=== PATIENT | female | born 1945 | race Caucasian/White ===

== ENCOUNTER 2022-06-26 13:30 | Emergency (ER) | payer OTHER, MEDICARE, SELFPAY ==
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
[2022-06-26 14:02] VITALS: BP 130/86; BP 146/85; PULSE 63; PULSE 68; RESP 16; TEMP 36.8; O2SAT 96; BMI 28.9
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
[2022-06-26] MEDS: Acetaminophen 325 MG TABLET 650 MG PO (16:27)
[2022-06-26 16:30] VITALS: BP 162/79; PULSE 79; RESP 18
[2022-06-26] MEDS: Insulin Glargine,Hum.rec.anlog 100 UNIT/ML 10 ML VIAL 8 UNIT SUBCUT (18:45)
[2022-06-26] MEDS: traMADoL HCL 50 MG TABLET 100 MG PO (19:21)
== END 2022-06-26 19:30 | disposition home or self-care (01) ==
PROVIDERS: Emergency Provider Emergency Medicine; PCP Family Medicine
DX: S22.42XA Multiple fractures of ribs, left side, initial encounter for closed fracture (principal); S80.11XA Contusion of right lower leg, initial encounter; M54.2 Cervicalgia; R51.9 Headache, unspecified; M54.6 Pain in thoracic spine; V43.62XA Car passenger injured in collision with other type car in traffic accident, initial encounter; Y93.9 Activity, unspecified; Y92.410 Unspecified street and highway as the place of occurrence of the external cause; Y99.9 Unspecified external cause status; Z79.899 Other long term (current) drug therapy
CPT/HCPCS: 70450; 71250; 72125; 99284

== ENCOUNTER 2022-06-30 13:00 | Emergency (ER) | payer OTHER, SELFPAY ==
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
--- NOTE | ~2022-06-30 | XR_ITS ---
EXAMINATION: XR KNEE, RIGHT CLINICAL INFORMATION: Pain COMPARISON: None TECHNIQUE: AP and lateral views of the right knee. FINDINGS: Bones are osteopenic. There is moderate to severe medial compartment joint space narrowing with cortical remodeling, articular sclerosis, and marginal osteophytes. There is more mild lateral and patellofemoral compartment joint space narrowing with prominent marginal osteophytes. Moderate-sized joint effusion. No fractures. Slight varus angulation at the right knee. Calcific atherosclerosis in the popliteal artery. Multiple small dystrophic calcifications around the knee. XR/XR knee RT 2V IMPRESSION: Moderate to severe medial compartment osteoarthritis. More mild patellofemoral and lateral compartment osteoarthritis. Moderate-sized joint effusion.
[2022-06-30 13:13] VITALS: BP 99/58; PULSE 77; O2SAT 95
[2022-06-30 16:01] VITALS: BP 127/71; PULSE 76; RESP 18; TEMP 36.8; O2SAT 98; BMI 28.9
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
[2022-06-30] MEDS: Acetaminophen 325 MG TABLET 975 MG PO (18:26)
== END 2022-06-30 18:40 | disposition home or self-care (01) ==
PROVIDERS: Emergency Provider Emergency Medicine; PCP Family Medicine
DX: S83.91XA Sprain of unspecified site of right knee, initial encounter (principal); S80.01XA Contusion of right knee, initial encounter; V49.9XXA Car occupant (driver) (passenger) injured in unspecified traffic accident, initial encounter; M25.561 Pain in right knee; Y93.9 Activity, unspecified; Y92.410 Unspecified street and highway as the place of occurrence of the external cause; Y99.9 Unspecified external cause status
CPT/HCPCS: 73560; 93971; 99283; 99284

== ENCOUNTER 2022-12-24 13:34 | Emergency (ER) | payer OTHER, MEDICARE, SELFPAY ==
--- NOTE | ~2022-12-24 | XR_ITS ---
EXAMINATION: Left shoulder and chest x-ray. CLINICAL INDICATION: Fall. Pain. COMPARISON: None. FINDINGS: LEFT SHOULDER: There is vertical minimally displaced fracture involving the greater tuberosity. No additional fracture seen. No dislocation. There is loss of left AC joint with periarticular spurring. The soft tissues are normal. There is an old healed fracture left lateral sixth rib. CHEST: The lungs are well-expanded with right base atelectasis and elevated right hemidiaphragm. The heart size and progress clarities normal. No gross bony abnormality seen. XR/XR chest 2V IMPRESSION: Minimally displaced vertical fracture involving the greater tuberosity. No dislocation. 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 Chronic right basilar atelectasis with elevated right hemidiaphragm.
--- NOTE | ~2022-12-24 | XR_ITS ---
EXAMINATION: Left shoulder and chest x-ray. CLINICAL INDICATION: Fall. Pain. COMPARISON: None. FINDINGS: LEFT SHOULDER: There is vertical minimally displaced fracture involving the greater tuberosity. No additional fracture seen. No dislocation. There is loss of left AC joint with periarticular spurring. The soft tissues are normal. There is an old healed fracture left lateral sixth rib. CHEST: The lungs are well-expanded with right base atelectasis and elevated right hemidiaphragm. The heart size and progress clarities normal. No gross bony abnormality seen. XR/XR shoulder LT min 2V IMPRESSION: Minimally displaced vertical fracture involving the greater tuberosity. No dislocation. 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 Chronic right basilar atelectasis with elevated right hemidiaphragm.
--- NOTE | ~2022-12-24 | CT_ITS ---
EXAMINATION: CT HEAD WITHOUT CONTRAST CLINICAL INFORMATION: Trauma. COMPARISON: CT brain 06/26/2022 TECHNIQUE: Contiguous axial imaging was performed from the skull base to vertex without intravenous administration of contrast. This CT examination was performed using dose optimization techniques as appropriate, variously including the following: *Automated exposure control *Adjustment of mA and/or kV according to patient size (this includes techniques or standardized protocols for targeted exams where dose is matched to indication/reason for exam; i.e. extremities or head) *Use of iterative reconstruction technique DLP: 510 mGy-cm FINDINGS: There is no acute intra-axial, extra-axial bleed, masses or midline shift. There is no acute infarction evolution. There is no edema. The kumari to white matter differentiation is maintained normal. The lateral ventricles are symmetrical in size and configuration with mild enlargement. Bone windows reveal no calvarial abnormality. There is complete opacification of left maxillary sinus. Rest of the paranasal sinuses and mastoid air cells are well-aerated. There is no scalp soft tissue abnormality seen.. CT/CT head/brain wo IV con IMPRESSION: 1. No acute intracranial process seen. 2. Chronic left maxillary sinus inflammatory changes.
[2022-12-24 13:39] VITALS: BP 174/75; PULSE 90; RESP 24; TEMP 36.7; O2SAT 94; BMI 27.3
--- NOTE | 2022-12-24 13:44 | ECG_ITS ---
Test Reason : FALL Blood Pressure : / mmHG Vent. Rate : 084 BPM Atrial Rate : 084 BPM P-R Int : 182 ms QRS Dur : 080 ms QT Int : 388 ms P-R-T Axes : 048 -18 036 degrees QTc Int : 458 ms Normal sinus rhythm Cannot rule out Anterior infarct , age undetermined Abnormal ECG When compared with ECG of 22-NOV-2017 19:27, Vent. rate has increased BY 28 BPM Non-specific change in ST segment in Anterior leads Referred By: Parish Moreno Electronically Signed By:LEON LORENZO MD
--- NOTE | 2022-12-24 13:45 | ED_ITS ---
HPI - General Adult General Chief complaint: General Medical <Parish Moreno - Last Filed: 12/24/22 13:50> Stated complaint: fall/ L shoulder injury <Parish Moreno - Last Filed: 12/24/22 13:50> Time Seen by Provider: 12/24/22 15:33 <Parish Moreno - Last Filed: 12/24/22 13:50> Source: patient <REYES Jones - Last Filed: 12/24/22 15:53> Mode of arrival: ambulatory <REYES Jones - Last Filed: 12/24/22 15:53> Limitations: no limitations <REYES Jones - Last Filed: 12/24/22 15:53> History of Present Illness HPI narrative: Patient is a 77 year old assigned female at with a history of diabetes, HTN, and anticoagulant use presenting to the emergency department today with left shoulder pain. Patient states that she leaned over and fell onto her left shoulder in [place] Patient denies any loss of consciousness. States that she has been having some intermittent shortness of breath. Patient denies any dizziness, lightheadedness, abdominal pain, nausea, vomiting, fever, chills, blurry vision, double vision, loss of vision, chest pain, back pain, night sweats, pain with urination, increased urinary frequency, increased urinary urgency, blood in her urine or stool, syncope or a near syncopal episode, bowel incontinence, bladder incontinence, bowel retention, bladder retention, or any other complaints at this time. <REYES Jones - Last Filed: 12/24/22 15:53> Onset (ago): minute(s) <REYES Jones - Last Filed: 12/24/22 15:53> Location: left and upper extremity <REYES Jones Last Filed: 12/24/22 15:53> Radiation: non-radiation <REYES Jones - Last Filed: 12/24/22 15:53> Severity: mild <REYES Jones - Last Filed: 12/24/22 15:53> Severity scale (1-10): 3 <REYES Jones Last Filed: 12/24/22 15:53> Quality: aching and dull <REYES Jones - Last Filed: 12/24/22 15:53> Pain Consistency: constant <REYES Jones - Last Filed: 12/24/22 15:53> Relieving factors: none <REYES Jones - Last Filed: 12/24/22 15:53> Exacerbating factors: none <REYES Jones - Last Filed: 12/24/22 15:53> Associated symptoms: denies other symptoms <REYES Jones - Last Filed: 12/24/22 15:53> Treatments prior to arrival: none <REYES Jones - Last Filed: 12/24/22 15:53> Related Data Home medications: Previous Rx's Medication Instructions Recorded tramadol 50 mg tablet 50 - 100 mg PO Q6H PRN pain #24 06/26/22 tabs acetaminophen 500 mg tablet 1,000 mg PO QID PRN fever or pain 06/30/22 (Tylenol Extra Strength) #14 tabs tramadol 50 mg tablet 50 mg PO Q8H PRN pain #14 tabs 06/30/22 <Parish Moreno - Last Filed: 12/24/22 13:50> Allergies/adverse reactions: Allergies Allergy/AdvReac Type Severity Reaction Status Date / Time fenofibrate [From TRICOR] Allergy Severe ABEBA Unverified 06/21/20 16:57 JOHNSONS Penicillins [PCN] Allergy Severe ANAPHYLAXIS Unverified 06/21/20 16:57 sulfamethoxazole Allergy Severe ABEBA Unverified 06/21/20 16:57 [From BACTRIM] JOHNSONS trimethoprim [From BACTRIM] Allergy Severe ABEBA Unverified 06/21/20 16:57 JOHNSONS levofloxacin [From LEVAQUIN] Allergy Intermediate ANGIOEDEMA Unverified 06/21/20 16:57 losartan [LOSARTAN] Allergy Intermediate HYPERKALEMI Unverified 06/21/20 16:57 A [id number]-[id number] Reductase Allergy Intermediate MUSCLE Unverified 06/21/20 16:57 Inhibitor PAINS [[id number] REDUCTASE INHIBITOR] lisinopril [LISINOPRIL] Allergy Mild COUGH Unverified 06/21/20 16:57 NSAIDS (Non-Steroidal Allergy Mild GI UPSET Unverified 06/21/20 16:57 Anti-Inflamma [NSAIDS (NON-STEROIDAL ANTI-INFLAMMA] allopurinol Allergy Unknown Unverified 01/01/19 00:00 atorvastatin [Caduet] Allergy Unknown Unverified 01/01/19 00:00 ibuprofen Allergy Unknown Verified 04/25/16 00:00 oseltamivir [From TAMIFLU] Allergy Unknown PANCREATITI Unverified 06/21/20 16:57 S penicillin V Allergy Unknown Unverified 01/01/19 00:00 pravastatin Allergy Unknown Unverified 01/01/19 00:00 rosuvastatin Allergy Unknown Verified 01/01/19 00:00 simvastatin Allergy Unknown Unverified 01/01/19 00:00 Sulfa (Sulfonamide Allergy Unknown Unverified 01/01/19 00:00 Antibiotics) trazodone Allergy Unknown Unverified 01/01/19 00:00 amlodipine [From NORVASC] AdvReac Unknown UNKNOWN Unverified 06/21/20 16:57 <Parish Moreno - Last Filed: 12/24/22 13:50> Review of Systems Constitutional: Constitutional: Reports no additional constitutional complaints, Denies chills, Denies fever(s) and Denies night sweats <REYES Jones - Last Filed: 12/24/22 15:53> Eyes: Eyes: Reports no additional eye complaints, Denies blurry vision, Denies change in vision, Denies diplopia, Denies eye discharge, Denies loss of vision and Denies eye pain <REYES Jones - Last Filed: 12/24/22 15:53> ENT: Denies dizziness <REYES Jones - Last Filed: 12/24/22 15:53> Cardiovascular: Cardiovascular: Reports no additional cardiovascular complaints, Denies chest pain, Denies lightheadedness, Denies Loss of Consciousness and Reports dyspnea (intermittent) <REYES Jones - Last Filed: 12/24/22 15:53> Respiratory: Respiratory: Reports no additional respiratory complaints and Reports dyspnea (intermittent) <REYES Jones - Last Filed: 12/24/22 15:53> Gastrointestinal: Gastrointestinal: Reports no additional gastrointestinal complaints, Denies abdominal pain, Denies melena, Denies hematochezia, Denies change in bowel habits and Denies change in stool character <REYES Jones - Last Filed: 12/24/22 15:53> Genitourinary: Genitourinary: Denies hematuria, Denies urinary frequency, Denies dysuria, Denies urinary incontinence, Denies urinary hesitancy and Denies urinary urgency <REYES Jones - Last Filed: 12/24/22 15:53> Musculoskeletal: Musculoskeletal: Reports no additional musculoskeletal complaints, Denies numbness and Denies tingling <REYES Jones - Last Filed: 12/24/22 15:53> Comments: left shoulder pain <REYES Jones - Last Filed: 12/24/22 15:53> Neurologic: Denies dizziness, Denies loss of vision, Denies numbness and Denies tingling <REYES Jones - Last Filed: 12/24/22 15:53> Psychiatric: Psychiatric: Reports no additional psychiatric complaints <REYES Jones - Last Filed: 12/24/22 15:53> Endocrine: Endocrine: Reports no additional endocrine complaints <REYES Jones - Last Filed: 12/24/22 15:53> Hematologic/Lymphatic: Hematologic/Lymphatic: Reports no additional hematologic/lymphatic complaints <REYES Jones - Last Filed: 12/24/22 15:53> Allergic/Immunologic: Allergic/Immunologic: Reports no additional aller gic/immunologic complaints <REYES Jones - Last Filed: 12/24/22 15:53> PMFSH Past Medical History Attestation statement: The following information was validated with the patient. <REYES Jones - Last Filed: 12/24/22 15:53> Source: old records reviewed and nursing notes reviewed <REYES Jones - Last Filed: 12/24/22 15:53> Surgical History: Surgical History H/O heart artery stent H/O: hysterectomy Total knee replacement status <Parish Moreno - Last Filed: 12/24/22 13:50> Social History Social History: Social History Patient Tobacco Use Status: Never used Tobacco Substance Use Type: Marijuana Advance Directives: Yes Advance Directives on File: Yes Advance Directives Date on File: 06/26/22 <Parish Moreno - Last Filed: 12/24/22 13:50> Physical Exam ED Vital Signs: Vital Signs - 24 hr 12/24/22 13:39 Temperature 98.1 F Pulse Rate 90 Respiratory Rate 24 H Blood Pressure 174/75 H Pulse Oximetry 94 Oxygen Delivery Method Room Air BMI result Body Mass Index 27.3 <Parish Moreno - Last Filed: 12/24/22 13:50> Vital Signs - 24 hr 12/24/22 13:39 Temperature 98.1 F Pulse Rate 90 Respiratory Rate 24 H Blood Pressure 174/75 H Pulse Oximetry 94 Oxygen Delivery Method Room Air BMI result Body Mass Index 27.3 <REYES Jones - Last Filed: 12/24/22 15:53> Const General: cooperative, no acute distress, alert and awake <REYES Jones - Last Filed: 12/24/22 15:53> Nutritional Appearance: well nourished <REYES Jones - Last Filed: 12/24/22 15:53> Orientation/consciousness: patient oriented x3 <REYES Jones - Last Filed: 12/24/22 15:53> Limitations: no limitations <REYES Jones - Last Filed: 12/24/22 15:53> HENMT Head: Yes normal to inspection and Yes atraumatic <REYES Jones - Last Filed: 12/24/22 15:53> Ears: hearing grossly normal bilaterally and external ears normal <REYES Jones - Last Filed: 12/24/22 15:53> General nose exam: Normal external nose present, no nasal discharge noted and no epistaxis <REYES Jones - Last Filed: 12/24/22 15:53> Face and sinus: Yes normal facial exam, No abrasion and No laceration <REYES Jones - Last Filed: 12/24/22 15:53> Mouth: Normal oral and palatal mucosa present, no drooling and no muffled voice <REYES Jones - Last Filed: 12/24/22 15:53> Eyes General: appearance normal, both eyes and all related structures <REYES Jones - Last Filed: 12/24/22 15:53> Periorbital: periorbital findings normal <Estelle Myers [facility] - Last Filed: 12/24/22 15:53> Eyelids: Yes eyelids normal <Estelle Myers [facility] - Last Filed: 12/24/22 15:53> Conjunctivae: conjunctivae normal <Estelle Myers [facility] - Last Filed: 12/24/22 15:53> Pupils: Equal, round and reactive pupils present <Estelle Myers [facility] - Last Filed: 12/24/22 15:53> EOM: EOMs intact bilaterally <Estelle Myers [facility] - Last Filed: 12/24/22 15:53> Neck Neck: Yes normal visual inspection, Yes full ROM and Yes no lymphadenopathy <Estelle Myers [facility] - Last Filed: 12/24/22 15:53> Chest Chest palpation & inspection: normal inspection of the chest <Estelle Myers [facility] - Last Filed: 12/24/22 15:53> Resp Effort & Inspection: normal respiratory effort and able to speak in complete sentences <Estelle Myers [facility] - Last Filed: 12/24/22 15:53> Auscultation: clear to auscultation bilaterally <Estelle Myers [facility] - Last Filed: 12/24/22 15:53> Cardio Rate: regular rate <Estelle Myers [facility] - Last Filed: 12/24/22 15:53> Rhythm: regular rhythm <Estelle Myers [facility] - Last Filed: 12/24/22 15:53> GI Inspection: Yes normal to inspection <Estelle Myers [facility] - Last Filed: 12/24/22 15:53> Palpation (GI): Soft to palpation, not firm, nontender and no guarding <Estelle Myers [facility] - Last Filed: 12/24/22 15:53> Neuro General: patient oriented x3 and moves all extremities <Estelle Myers [facility] - Last Filed: 12/24/22 15:53> Cranial nerves: Yes Equal, round and reactive pupils present <Estelle Myers [facility] - Last Filed: 12/24/22 15:53> Cognition (Neuro): normal cognition <Estelle Myers [facility] - Last Filed: 12/24/22 15:53> Motor exam (neuro): 5/5 motor strength present throughout <Estelle MyersREYES - Last Filed: 12/24/22 15:53> Sensory Exam: Normal double simultaneous stimulation for sensation <Estelle MyersREYES - Last Filed: 12/24/22 15:53> Coordination: [id number] test normal <Estelle MyersREYES - Last Filed: 12/24/22 15:53> Extrem Other: limited left shoulder ROM secondary to pain <Estelle MyersREYES - Last Filed: 12/24/22 15:53> General: Yes normal to inspection and Yes capillary refill normal <Estelle MyersREYES - Last Filed: 12/24/22 15:53> Psych Appearance: grossly normal <Estelle MyersREYES - Last Filed: 12/24/22 15:53> Mental Status: mental status grossly normal <Estelle MyersREYES - Last Filed: 12/24/22 15:53> Affect: normal affect <Estellesahil CapellanREYES blevins - Last Filed: 12/24/22 15:53> Attitude: cooperative <Estelle CapellanREYES blevins - Last Filed: 12/24/22 15:53> Thought process: Normal thought process present <Estellesahil CapellanREYES blevins - Last Filed: 12/24/22 15:53> Thought content: Normal thought content present <Estelle MyersREYES - Last Filed: 12/24/22 15:53> Insight: Good insight present (Psych) <Estelle CapellanREYES blevins - Last Filed: 12/24/22 15:53> Course Course Course Narrative: 77-year-old female presents for evaluation after a fall. Patient denies any prodrome symptoms but reports that she bent over to pick something up and fell on her left shoulder. Also endorsing shortness of breath. Patient is diaphoretic and tachypneic. Cardiac workup ordered as well as imaging of the shoulder that was injured. I ordered CT scan the brain given the fall while the patient is anticoagulated <Parish Moreno - Last Filed: 12/24/22 13:50> Procedures Orthopedic Splinting/Casting Injury #1: Side: left <Estelle CapellanREYES blevins - Last Filed: 12/24/22 15:53> Upper Extremity Injury Location: shoulder <REYES Jones - Last Filed: 12/24/22 15:53> Upper Extremity Immobilizer: sling/shoulder immobilizer <REYES Jones - Last Filed: 12/24/22 15:53> Medical Decision Making Medical Decision Making [facility] Narrative: Patient is a 77 year old assigned female at with a history of HTN, diabetes, and anticoagulant use presenting to the emergency department today with left shoulder pain. Patient's physical exam showed limited ROM of the left shoulder secondary to pain but was otherwise unremarkable. Patient's blood work was unremarkable. Patient's EKG was unremarkable. Patient's head CT showed no acute process. Patient's chest and left shoulder XRs showed an acute left margaret l fracture. I explained my physical exam findings as well as all test results to the patient. I answered all questions asked by the patient. Patient's left arm was placed in a sling, without incident. Patient's PMS was intact prior to and after sling placement. I stressed the importance of the patient taking her medication as prescribed. I stressed the importance of the patient following up with her primary care provider and an orthopedic provider. I stressed the importance of the patient returning to the emergency department immediately if her symptoms were to worsen or if she were to develop any dizziness, shortness of breath, difficulty breathing, chest pain, blurry vision, loss of vision, nausea, vomiting, abdominal pain, fever, chills, back pain, or any other complaints. Patient verbalized agreement and understanding with this treatment plan and discharge. <REYES Jones - Last Filed: 12/24/22 15:53> Differential Diagnosis Differential Diagnoses: The differential diagnosis associated with the presentation includes <REYES Jones - Last Filed: 12/24/22 15:53> fall, left shoulder pain, humeral fracture <REYES Jones - Last Filed: 12/24/22 15:53> Lab Data [facility] Lab Attestation statement: I reviewed the patient's lab results. <REYES Jones - Last Filed: 12/24/22 15:53> Result Diagrams: 12/24/22 14:08 12/24/22 14:08 <Parish Moreno - Last Filed: 12/24/22 13:50> Labs: Lab Results 0312/24/22 12/24/22 Range/Units 14:07 14:07 14:08 WBC 13.8 H (4.8-10.8) X10*3/uL RBC 4.74 (4.20-5.50) X10*6/uL Hgb 14.2 (12.0-16.0) g/dl Hct 42.0 (37.0-47.0) % MCV 88.6 (80.0-98.0) fL MCH 30.0 (27.0-33.0) pg MCHC 33.8 (31.0-35.0) g/dl RDW 13.9 (11.0-16.0) % Plt Count 246 (160-400) X10*3/uL MPV 9.7 (9.4-12.3) fL Immature Gran % (Auto) 0.4 (0.0-0.4) % Neut % (Auto) 81.8 H (45-73) % Lymph % (Auto) 12.0 L (20-40) % Sabine % (Auto) 4.2 (2-11) % Eos % (Auto) 1.2 (0-4) % Baso % (Auto) 0.4 (0-2) % Lymph # (Auto) 1.7 (1.2-4.9) X10*3/uL Sabine # (Auto) 0.6 (0.1-1.2) X10*3/uL Eos # (Auto) 0.2 (0.0-0.4) X10*3/uL Baso # (Auto) 0.1 (0.0-0.2) X10*3/uL Abs Immat Gran (auto) 0.05 H (0.00-0.03) X10*3/uL Absolute Neuts (auto) 11.3 H (2.0-8.3) x10*3/uL Absolute Nucleated RBC 0.000 (0.0-0.012) X10*3/uL Nucleated RBC % (auto) 0.0 (0.0-0.2) /100WBC PT (10.0-13.1) SEC INR (0.9-1.1) APTT (26.0-36.4) SEC Sodium (135-145) mmol/L Potassium (3.3-5.1) mmol/L Chloride (96-108) mmol/L Carbon Dioxide (22-29) mmol/L Anion Gap (12-20) BUN (9-16) mg/dL Creatinine (0.5-1.4) mg/dL Estim Creat Clear Calc Estimated GFR Random Glucose (60-115) mg/dL Calcium (8.4-10.2) mg/dL Magnesium (1.6-2.6) mg/dL Total Bilirubin (0.0-1.0) mg/dL AST (5-31) U/L ALT (0-31) U/L Alkaline Phosphatase (39-117) U/L Troponin I High Sens < 3.5 (<3.5-17.0) ng/L B-Natriuretic Peptide 36 (<100) pg/mL Total Protein (6.5-8.0) g/dL Albumin (3.5-5.0) g/dL Influenza Type A (PCR) (Negative) Influenza Type B (PCR) (Negative) RSV RNA Qual (PCR) (Negative) SARS-CoV-2 RNA (RT-PCR) (Negative) 12/24/22 12/24/22 12/24/22 Range/Units 14:08 14:08 14:09 WBC (4.8-10.8) X10*3/uL RBC (4.20-5.50) X10*6/uL Hgb (12.0-16.0) g/dl Hct (37.0-47.0) % MCV (80.0-98.0) fL MCH (27.0-33.0) pg MCHC (31.0-35.0) g/dl RDW (11.0-16.0) % Plt Count (160-400) X10*3/uL MPV (9.4-12.3) fL Immature Gran % (Auto) (0.0-0.4) % Neut % (Auto) (45-73) % Lymph % (Auto) (20-40) % Sabine % (Auto) (2-11) % Eos % (Auto) (0-4) % Baso % (Auto) (0-2) % Lymph # (Auto) (1.2-4.9) X10*3/uL Sabine # (Auto) (0.1-1.2) X10*3/uL Eos # (Auto) (0.0-0.4) X10*3/uL Baso # (Auto) (0.0-0.2) X10*3/uL Abs Immat Gran (auto) (0.00-0.03) X10*3/uL Absolute Neuts (auto) (2.0-8.3) x10*3/uL Absolute Nucleated RBC (0.0-0.012) X10*3/uL Nucleated RBC % (auto) (0.0-0.2) /100WBC PT 19.0 H (10.0-13.1) SEC INR 1.6 H (0.9-1.1) APTT 42.2 H (26.0-36.4) SEC Sodium 135 (135-145) mmol/L Potassium 3.9 (3.3-5.1) mmol/L Chloride 100 (96-108) mmol/L Carbon Dioxide 27 (22-29) mmol/L Anion Gap 12 (12-20) BUN 30 H (9-16) mg/dL Creatinine 1.13 (0.5-1.4) mg/dL Estim Creat Clear Calc 34.7 Estimated GFR 47 Random Glucose 218 H (60-115) mg/dL Calcium 9.5 (8.4-10.2) mg/dL Magnesium 1.8 (1.6-2.6) mg/dL Total Bilirubin 0.5 (0.0-1.0) mg/dL AST 22 (5-31) U/L ALT 16 (0-31) U/L Alkaline Phosphatase 98 (39-117) U/L Troponin I High Sens (<3.5-17.0) ng/L B-Natriuretic Peptide (<100) pg/mL Total Protein 7.1 (6.5-8.0) g/dL Albumin 4.4 (3.5-5.0) g/dL Influenza Type A (PCR) NEGATIVE (Negative) Influenza Type B (PCR) NEGATIVE (Negative) RSV RNA Qual (PCR) NEGATIVE (Negative) SARS-CoV-2 RNA (RT-PCR) NEGATIVE (Negative) <Parish Moreno - Last Filed: 12/24/22 13:50> Lab Results 12/24/22 12/24/22 12/24/22 Range/Units 14:07 14:07 14:08 WBC 13.8 H (4.8-10.8) X10*3/uL RBC 4.74 (4.20-5.50) X10*6/uL Hgb 14.2 (12.0-16.0) g/dl Hct 42.0 (37.0-47.0) % MCV 88.6 (80.0-98.0) fL MCH 30.0 (27.0-33.0) pg MCHC 33.8 (31.0-35.0) g/dl RDW 13.9 (11.0-16.0) % Plt Count 246 (160-400) X10*3/uL MPV 9.7 (9.4-12.3) fL Immature Gran % (Auto) 0.4 (0.0-0.4) % Neut % (Auto) 81.8 H (45-73) % Lymph % (Auto) 12.0 L (20-40) % Sabine % (Auto) 4.2 (2-11) % Eos % (Auto) 1.2 (0-4) % Baso % (Auto) 0.4 (0-2) % Lymph # (Auto) 1.7 (1.2-4.9) X10*3/uL Sabine # (Auto) 0.6 (0.1-1.2) X10*3/uL Eos # (Auto) 0.2 (0.0-0.4) X10*3/uL Baso # (Auto) 0.1 (0.0-0.2) X10*3/uL Abs Immat Gran (auto) 0.05 H (0.00-0.03) X10*3/uL Absolute Neuts (auto) 11.3 H (2.0-8.3) x10*3/uL Absolute Nucleated RBC 0.000 (0.0-0.012) X10*3/uL Nucleated RBC % (auto) 0.0 (0.0-0.2) /100WBC PT (10.0-13.1) SEC INR (0.9-1.1) APTT (26.0-36.4) SEC Sodium (135-145) mmol/L Potassium (3.3-5.1) mmol/L Chloride (96-108) mmol/L Carbon Dioxide (22-29) mmol/L Anion Gap (12-20) BUN (9-16) mg/dL Creatinine (0.5-1.4) mg/dL Estim Creat Clear Calc Estimated GFR Random Glucose (60-115) mg/dL Calcium (8.4-10.2) mg/dL Magnesium (1.6-2.6) mg/dL Total Bilirubin (0.0-1.0) mg/dL AST (5-31) U/L ALT (0-31) U/L Alkaline Phosphatase (39-117) U/L Troponin I High Sens < 3.5 (<3.5-17.0) ng/L B-Natriuretic Peptide 36 (<100) pg/mL Total Protein (6.5-8.0) g/dL Albumin (3.5-5.0) g/dL Influenza Type A (PCR) (Negative) Influenza Type B (PCR) (Negative) RSV RNA Qual (PCR) (Negative) SARS-CoV-2 RNA (RT-PCR) (Negative) 12/24/22 12/24/22 12/24/22 Range/Units 14:08 14:08 14:09 WBC (4.8-10.8) X10*3/uL RBC (4.20-5.50) X10*6/uL Hgb (12.0-16.0) g/dl Hct (37.0-47.0) % MCV (80.0-98.0) fL MCH (27.0-33.0) pg MCHC (31.0-35.0) g/dl RDW (11.0-16.0) % Plt Count (160-400) X10*3/uL MPV (9.4-12.3) fL Immature Gran % (Auto) (0.0-0.4) % Neut % (Auto) (45-73) % Lymph % (Auto) (20-40) % Sabine % (Auto) (2-11) % Eos % (Auto) (0-4) % Baso % (Auto) (0-2) % Lymph # (Auto) (1.2-4.9) X10*3/uL Sabine # (Auto) (0.1-1.2) X10*3/uL Eos # (Auto) (0.0-0.4) X10*3/uL Baso # (Auto) (0.0-0.2) X10*3/uL Abs Immat Gran (auto) (0.00-0.03) X10*3/uL Absolute Neuts (auto) (2.0-8.3) x10*3/uL Absolute Nucleated RBC (0.0-0.012) X10*3/uL Nucleated RBC % (auto) (0.0-0.2) /100WBC PT 19.0 H (10.0-13.1) SEC INR 1.6 H (0.9-1.1) APTT 42.2 H (26.0-36.4) SEC Sodium 135 (135-145) mmol/L Potassium 3.9 (3.3-5.1) mmol/L Chloride 100 (96-108) mmol/L Carbon Dioxide 27 (22-29) mmol/L Anion Gap 12 (12-20) BUN 30 H (9-16) mg/dL Creatinine 1.13 (0.5-1.4) mg/dL Estim Creat Clear Calc 34.7 Estimated GFR 47 Random Glucose 218 H (60-115) mg/dL Calcium 9.5 (8.4-10.2) mg/dL Magnesium 1.8 (1.6-2.6) mg/dL Total Bilirubin 0.5 (0.0-1.0) mg/dL AST 22 (5-31) U/L ALT 16 (0-31) U/L Alkaline Phosphatase 98 (39-117) U/L Troponin I High Sens (<3.5-17.0) ng/L B-Natriuretic Peptide (<100) pg/mL Total Protein 7.1 (6.5-8.0) g/dL Albumin 4.4 (3.5-5.0) g/dL Influenza Type A (PCR) NEGATIVE (Negative) Influenza Type B (PCR) NEGATIVE (Negative) RSV RNA Qual (PCR) NEGATIVE (Negative) SARS-CoV-2 RNA (RT-PCR) NEGATIVE (Negative) <REYES Jones - Last Filed: 12/24/22 15:53> Independent Interpretation I performed an independent interpretation of an: EKG <REYES Jones - Last Filed: 12/24/22 15:53> Interpretation: Vent. Rate: 084 BPM ? ? Atrial Rate: 084 BPM P-R Int: 182 ms? QRS Dur: 080 ms QT Int: 388 ms ? ? ? P-R-T Axes: 048 -18 036 degrees QTc Int: 458 ms ? Normal sinus rhythm Cannot rule out Anterior infarct , age undetermined Abnormal ECG When compared with ECG of 22-NOV-2017 19:27, Vent. rate has increased BY? 28 BPM Non-specific change in ST segment in Anterior leads DD/ 1355 <REYES Jones - Last Filed: 12/24/22 15:53> Radiology Impression Radiologist Impression: My interpretation is in agreement with the radiologist's impression of these imaging studies. -- EXAMINATION: CT HEAD WITHOUT CONTRAST CLINICAL INFORMATION: Trauma.? COMPARISON: CT brain 06/26/2022 TECHNIQUE: Contiguous axial imaging was performed from the skull base to vertex without intravenous administration of contrast. This CT examination was performed using dose optimization techniques as appropriate, variously including the following: *Automated exposure control *Adjustment of mA and/or kV according to patient size (this includes techniques or standardized protocols for targeted exams where dose is matched to indication/reason for exam; i.e. extremities or head) *Use of iterative reconstruction technique DLP: 510 mGy-cm FINDINGS: There is no acute intra-axial, extra-axial bleed, masses or midline shift. There is no acute infarction evolution. There is no edema. The kumari to white matter differentiation is maintained normal. The lateral ventricles are symmetrical in size and configuration with mild enlargement. Bone windows reveal no calvarial abnormality. There is complete opacification of left maxillary sinus. Rest of the paranasal sinuses and mastoid air cells are well-aerated. There is no scalp soft tissue abnormality seen.. ? CT/CT head/brain wo IV con IMPRESSION: 1.? No acute intracranial process seen. 2.? Chronic left maxillary sinus inflammatory changes. ? Dictated By: Yoshi Hendricks MD Signed By: Electronically signed by Yoshi Hendricks MD 12/24/22 1515 EXAMINATION: Left shoulder and chest x-ray. CLINICAL INDICATION: Fall. Pain. COMPARISON: None. FINDINGS: LEFT SHOULDER: There is vertical minimally displaced fracture involving the greater tuberosity. No additional fracture seen. No dislocation. There is loss of left AC joint with periarticular spurring. The soft tissues are normal. There is an old healed fracture left lateral sixth rib. CHEST: The lungs are well-expanded with right base atelectasis and elevated right hemidiaphragm. The heart size and progress clarities normal. No gross bony abnormality seen. XR/XR chest 2V IMPRESSION: Minimally displaced vertical fracture involving the greater tuberosity. No dislocation. ? 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 ? Chronic right basilar atelectasis with elevated right hemidiaphragm. Dictated By: Yoshi Hendricks MD Signed By: Electronically signed by Yoshi Hendricks MD 12/24/22 1509 <REYES Jones - Last Filed: 12/24/22 15:53> Discharge Plan Discharge Clinical Impression: Fracture, humerus <Parish Moreno - Last Filed: 12/24/22 13:50> Patient Disposition: Home, Self-Care <Parish Moreno - Last Filed: 12/24/22 13:50> Instructions: Arm Fracture in Adults (ED), How to Use a Sling (ED) <Parish Moreno - Last Filed: 12/24/22 13:50> Additional Instructions: Follow up with your primary care provider and an orthopedic provider. Return to the emergency department immediately if your symptoms worsen or if you develop any dizziness, shortness of breath, difficulty breathing, chest pain, blurry vision, loss of vision, nausea, vomiting, abdominal pain, fever, chills, back pain, or any other complaints. <Parish Moreno - Last Filed: 12/24/22 13:50> Prescriptions: No Action tramadol 50 mg tablet 50 mg PO Q8H PRN (Reason: pain) Qty: 14 0RF Rx Instructions: May partially fill upon patient request acetaminophen [Tylenol Extra Strength] 500 mg tablet 1,000 mg PO QID PRN (Reason: fever or pain) Qty: 14 0RF tramadol 50 mg tablet 50 - 100 mg PO Q6H PRN (Reason: pain) Qty: 24 0RF <Parish Moreno - Last Filed: 12/24/22 13:50> Referrals: [facility] [Provider Group] (Call to establish and follow up with an orthopedic provider.) Hannah Wade MD [Primary Care Provider] - <Parish Moreno - Last Filed: 12/24/22 13:50> Print Language: Occitan <Parish Moreno - Last Filed: 12/24/22 13:50>
[2022-12-24 14:14] LABS: MANUAL DIFF FLAG NO
[2022-12-24 14:17] LABS: Basophils Absolute Auto 0.1 X10*3/uL (0.0-0.2); Basophils Percent Auto 0.4 % (0-2); Eosinophils Absolute Auto 0.2 X10*3/uL (0.0-0.4); Eosinophils Percent Auto 1.2 % (0-4); Hemoglobin 14.2 g/dl (12.0-16.0); Imm Gran Abs Auto 0.05 X10*3/uL (0.00-0.03); Imm Gran Pct Auto 0.4 % (0.0-0.4); Lymphocytes Absolute Auto 1.7 X10*3/uL (1.2-4.9); Mean Corpuscular HGB Conc 33.8 g/dl (31.0-35.0); Mean Corpuscular Volume 88.6 fL (80.0-98.0); Mean Platelet Volume 9.7 fL (9.4-12.3); Monocytes Absolute Auto 0.6 X10*3/uL (0.1-1.2); Monocytes Percent Auto 4.2 % (2-11); Neutrophils Absolute Auto 11.3 x10*3/uL (2.0-8.3); Neutrophils Percent Auto 81.8 % (45-73); Platelet Count 246 X10*3/uL (160-400); Red Blood Count 4.74 X10*6/uL (4.20-5.50); Red Cell Distribution Width 13.9 % (11.0-16.0); White Blood Count 13.8 X10*3/uL (4.8-10.8)
[2022-12-24 14:22] LABS: INTERNATIONAL NORM RATIO 1.6 (0.9-1.1)
[2022-12-24 14:25] LABS: Partial Thromboplastin Time 42.2 SEC (26.0-36.4)
[2022-12-24 14:32] LABS: Alanine Aminotransferase 16 U/L (0-31); Albumin Level 4.4 g/dL (3.5-5.0); Alkaline Phosphatase 98 U/L (39-117); Anion Gap 12 (12-20); Aspartate Amino Transferase 22 U/L (5-31); Bilirubin Total 0.5 mg/dL (0.0-1.0); Blood Urea Nitrogen 30 mg/dL (9-16); Calcium 9.5 mg/dL (8.4-10.2); Carbon Dioxide 27 mmol/L (22-29); Chloride 100 mmol/L (96-108); Creatinine Clr Calc Pharmacy 34.7; Estimated Glomerular Filt Rate 47; Glucose Random 218 mg/dL (60-115); Magnesium 1.8 mg/dL (1.6-2.6); Potassium 3.9 mmol/L (3.3-5.1); Sodium 135 mmol/L (135-145); Total Protein 7.1 g/dL (6.5-8.0)
[2022-12-24 14:36] LABS: B Type Natriuretic Peptide 36 pg/mL (<100)
[2022-12-24 14:42] LABS: Troponin-I High Sensitivity < 3.5 ng/L (<3.5-17.0)
[2022-12-24 14:55] LABS: Influenza A PCR NEGATIVE (Negative); Influenza B PCR NEGATIVE (Negative); Resp Syncy Virus RNA Qual PCR NEGATIVE (Negative); SARS COV2 PCR INHOUSE NEGATIVE (Negative)
[2022-12-24] MEDS: oxyCODONE HCl Immed Release 5 MG TABLET 10 MG PO (16:00)
== END 2022-12-24 16:03 | disposition home or self-care (01) ==
PROVIDERS: Physician Assistant; Emergency Provider Emergency Medicine; PCP Family Medicine
DX: S42.252A Displaced fracture of greater tuberosity of left humerus, initial encounter for closed fracture (principal); W17.89XA Other fall from one level to another, initial encounter; R06.02 Shortness of breath; E11.9 Type 2 diabetes mellitus without complications; I10 Essential (primary) hypertension; E78.5 Hyperlipidemia, unspecified; Y93.89 Activity, other specified; Y92.512 Supermarket, store or market as the place of occurrence of the external cause; Y99.8 Other external cause status; Z79.01 Long term (current) use of anticoagulants; Z20.822 Contact with and (suspected) exposure to COVID-19; Z20.828 Contact with and (suspected) exposure to other viral communicable diseases
CPT/HCPCS: 0241U; 36415; 70450; 71046; 73030; 80053; 83735; 83880; 84484; 85025; 85610; 85730; 93005; 99283; 99284